=== PATIENT | male | born 1980 | race Caucasian/White ===

== ENCOUNTER 2016-08-31 00:03 | Emergency (ER) | payer OTHER ==
[2016-08-31 01:10] VITALS: BP 133/84
== END 2016-08-31 01:10 | disposition home or self-care (01) ==
LOC: ED 00:03
DX: J06.9 Acute upper respiratory infection, unspecified (principal)

== ENCOUNTER 2018-02-17 08:34 | Emergency (ER) | payer OTHER ==
[~2018-02-17] VITALS: Ht 167.6 cm; Wt 90.7 kg
[2018-02-17 08:38] VITALS: BP 176/86; Ht 167.6 cm; Wt 90.7 kg
== END 2018-02-17 10:10 | disposition home or self-care (01) ==
LOC: ED 08:34
DX: J40 Bronchitis, not specified as acute or chronic (principal); E78.00 Pure hypercholesterolemia, unspecified

== ENCOUNTER 2018-02-21 16:07 | Emergency (ER) | payer OTHER ==
[~2018-02-21] VITALS: Ht 165.1 cm; Wt 92.1 kg
[2018-02-21 16:12] VITALS: Ht 165.1 cm; Wt 92.1 kg
[2018-02-21 17:32] VITALS: BP 162/88
== END 2018-02-21 17:32 | disposition home or self-care (01) ==
LOC: ED 16:07
DX: Z13.89 Encounter for screening for other disorder (principal); E78.00 Pure hypercholesterolemia, unspecified

== ENCOUNTER 2018-03-03 08:43 | Emergency (ER) | payer OTHER ==
[~2018-03-03] VITALS: Ht 162.6 cm; Wt 89.8 kg
[2018-03-03 08:44] VITALS: BP 157/93; Ht 162.6 cm; Wt 89.8 kg
== END 2018-03-03 09:31 | disposition home or self-care (01) ==
LOC: ED 08:43
DX: J06.9 Acute upper respiratory infection, unspecified (principal); E78.00 Pure hypercholesterolemia, unspecified